=== PATIENT | female | born 1965 | race African-American/Black ===

== ENCOUNTER 2016-07-28 22:55 | Emergency (ER) | payer OTHER ==
--- NOTE | ~2016-07-28 | CT71 ---
[facility] A Service of [facility] & [facility] RADIOLOGY TEXT RESULTS PATIENT: KIERAN COON LOCATION: [facility] : 61 UNIT #: [id number] AGE: [address]: Mikie Car MD SEX: F ORDER DR: [id number] [facility] [address] [place], [place] [address] [id number] MR#: [id number] Acc #: [id number] NAME: KIERAN COON : 1965 SEX: F STUDY DATE/TIME: 07/28/2016 23:49 UNIT: [facility] ROOM: STUDY DESCRIPTION: CT Head Wo Contrast Attending Physician: Mikie Car M.D. Ordering Physician: Mikie Car M.D. Primary Care Physician: Ron Tucker Sr., M.D. MEDICAL IMAGING REPORT This report is preliminary unless electronic signature is present EXAM Head CT, 07/28 at 23:49. INDICATIONS Seizure today. Headache in the middle of the head since that time. FINDINGS Axial images were obtained from base to vertex without contrast. Comparison made with 12/26/2015. This CT exam was performed with one or more of the following radiation dose reduction techniques: automatic exposure control, adjustment of mA and/or kV according to patient size, and iterative reconstruction. Ventricular size and configuration remain normal. There is no acute infarct or hemorrhage. There are no masses. There are no skull fractures. IMPRESSION Negative head CT. No change from prior. Dictated by... Sebastian Cabral Jr., M.D. THIS IS AN ELECTRONICALLY VERIFIED REPORT Sebastian Cabral Jr., M.D. at 07/29/2016 12:35 PM BEATA/nohemi TD: 07/29/2016 08:27 JOB #: [id number] MEDICAL IMAGING REPORT Page 1 of 1 COPY
[~2016-07-28 22:55] MED LIST: ACETAMINOPHEN PO; CYCLOGYL5 M1 OP; HYDROXYZINE HCL25 M1 PO; LORTAB 5/500 TA1 TA2 PO; OPTIVE EYE DROPS5 ML OP; PRED FORTE1 ML OP
[2016-07-29 00:22] LABS: URINE SOURCE CLEAN CATCH
[2016-07-29 00:23] LABS: URINE APPEARANCE CLEAR; URINE BILIRUBIN NEG (NEG); URINE BLOOD NEG (NEG); URINE COLOR YELLOW; URINE GLUCOSE NEG (NEG); URINE KETONE NEG (NEG); URINE LEUKOCYTE ESTERASE NEG (NEG); URINE NITRATE NEG (NEG); URINE PROTEIN NEG (NEG); URINE SPECIFIC GRAVITY 1.014 (1.003-1.035)
[2016-07-29 00:23] LABS: BASOPHIL% 0.2 % (0-2.5); HEMATOCRIT 37.4 % (35.0-45.0); HEMOGLOBIN 12.2 gm/dL (12.0-16.0); LYMPHOCYTE# 0.3 X10e3 (1.0-3.5); LYMPHOCYTE% 7.8 % (17.0-45.0); MEAN CELL VOLUME 100.2 FL (83-96); MEAN CORPUSCULAR HEMOGLOBIN 32.6 PG (28-34); MEAN CORPUSCULAR HGB CONC 32.5 g/dL (30-36); MEAN PLATELET VOLUME 6.3 FL (6.5-11.5); MONOCYTE# 0.3 X10e3 (0-1.0); MONOCYTE% 8.4 % (3.0-12.0); NEUTROPHIL# 3.5 X10e3 (1.5-7.1); NEUTROPHIL% 83.6 % (40-75); RED BLOOD COUNT 3.73 X10e (3.90-5.30); RED CELL DISTRIBUTION WIDTH 13.9 % (11.0-15.5); WHITE BLOOD COUNT 4.2 X10e3 (4.0-10.5)
[2016-07-29 00:33] LABS: CULTURE INDICATED? NO
[2016-07-29 00:37] LABS: AMPHETAMINE NEG (NEG); BARBITURATES NEG (NEG); BENZODIAZEPINES NEG (NEG); COCAINE NEG (NEG); MARIJUANA NEG (NEG); OPIATES NEG (NEG); TRICYCLIC ANTIDEPRESSANTS NEG (NEG); U METHADONE NEG (NEG)
[2016-07-29 00:39] LABS: DIFF IND YES; PLATELET COUNT 93 X10e3 (140-420)
[2016-07-29 00:42] LABS: ALKALINE PHOSPHATASE 53 U/L (32-92); ALT (SGPT) 97 U/L (10-40); AST (SGOT) 262 U/L (10-42); BILIRUBIN, DIRECT 0.3 mg/dL (0.0-0.2); BILIRUBIN,INDIRECT 0.9 mg/dL (0.0-0.9); BILIRUBIN,TOTAL 1.2 mg/dL (0.2-2.0); BLOOD UREA NITROGEN 9 mg/dL (9-23); BUN/CREATININE RATIO 11.25; CALCIUM SERUM 9.9 mg/dL (8.4-10.2); CARBON DIOXIDE 28 mmol/L (22-31); CHLORIDE 96 mmol/L (100-111); CREATININE SERUM 0.8 mg/dL (0.6-1.4); GLOM FILT RATE Estimated 97.6 mL/min (>60); GLUCOSE FASTING 113 mg/dL (70-110); POTASSIUM 3.2 mmol/L (3.5-5.1); PROTEIN TOTAL SERUM 8.8 g/dL (6.0-8.3); SODIUM 137 mmol/L (135-145)
[2016-07-29 00:42] LABS: PLATELET ESTIMATE DECREASED (NORMAL)
[2016-07-29 00:43] LABS: ALCOHOL BLOOD <5 mg/dL ([, 0])
[2016-07-29 00:43] LABS: ANISOCYTOSIS SL; DIFFERENTIAL COMMENT OCC.LRG.PLT; STOMATOCYTE PRESENT
== END 2016-07-29 01:17 | disposition home or self-care (01) ==
LOC: CED 22:55
PROVIDERS: Emergency Medicine
DX: R56.9 Unspecified convulsions (principal); Z88.2 Allergy status to sulfonamides
CPT/HCPCS: 36415; 70450; 80048; 80076; 80307; 81003; 85025; 96374; 96375; 99284; G0480; J1885; J1953